=== PATIENT | female | born 1945 | race Caucasian/White ===

== ENCOUNTER 2018-08-17 14:28 | Emergency (ER) | payer MEDICARE ==
[~2018-08-17] VITALS: Ht 170.2 cm; Wt 124.7 kg
[2018-08-17 15:28] LABS: BASOPHILS ABSOLUTE AUTO 0.08 K/mm3 (0.00-0.23); BASOPHILS PERCENT AUTO 1 % (0-2); EOSINOPHILS PERCENT AUTO 1 % (0-6); Hematocrit 43.9 % (33.0-51.0); Hemoglobin 13.7 g/dL (11.5-16.0); IMMATURE GRAN ABSOLUTE AUTO 0.04 K/mm3 (0.00-0.10); IMMATURE GRAN PERCENT AUTO 0 % (0-1); LYMPHOCYTES ABSOLUTE AUTO 1.24 K/mm3 (0.84-5.20); LYMPHOCYTES PERCENT AUTO 12 % (21-46); MONOCYTES ABSOLUTE AUTO 0.58 K/mm3 (0.16-1.47); MONOCYTES PERCENT AUTO 6 % (4-13); Mean Corpuscular HGB Conc 31.2 g/dL (31.5-36.5); Mean Corpuscular Volume 90 fL (80-100); Mean Platelet Volume 10.4 fL (9.1-12.4); NEUTROPHILS ABSOLUTE AUTO 8.38 K/mm3 (1.96-9.15); NEUTROPHILS PERCENT AUTO 80 % (41-73); Platelet Count 252 K/mm3 (150-400); RDW Standard Deviation 49.5 fL (35.1-46.3); Red Blood Cell Count 4.89 M/mm3 (3.80-5.20); White Blood Cell Count 10.42 K/mm3 (4.00-11.30)
[2018-08-17 15:49] LABS: Albumin, Blood 3.8 g/dL (3.4-5.0); Bilirubin, Total 0.6 mg/dL (0.1-1.0); Bun/Creatinine Ratio 24.1 (12.0-20.0); Calcium, Blood 9.5 mg/dL (8.5-10.1); Creatinine, Blood 1.37 mg/dL (0.40-1.00); Potassium, Blood 4.6 mmol/L (3.5-5.5); Total Protein, Blood 7.8 g/dL (6.4-8.2)
[2018-08-17 15:55] LABS: Source, Urine Clean Catch
[2018-08-17] MEDS ORDERED: AMLO10 PO (15:58)
[2018-08-17] MEDS ORDERED: HYDCHL25 PO (15:58)
[2018-08-17] MEDS ORDERED: BENA20 PO (15:58)
[2018-08-17] MEDS ORDERED: CAL MAG ZINC +1 EACH PO (15:59)
[2018-08-17] MEDS ORDERED: ATEN100 (15:59)
[2018-08-17] MEDS ORDERED: OMEGA-3 FLAXS1000 MG PO (16:00)
[2018-08-17] MEDS ORDERED: ASCO500 PO (16:00)
[2018-08-17] MEDS ORDERED: CHOL10002 (16:00)
[2018-08-17] MEDS ORDERED: ACET325 PO (16:01)
[2018-08-17] MEDS ORDERED: ASPI81CH PO (16:01)
[2018-08-17 16:05] LABS: Appearance, Urine Clear (Clear); Bilirubin, Urine Neg (Neg); Blood, Urine 5+ (Neg); Color, Urine Yellow (P-Yellow); Glucose Qualitative, Urine Neg (Neg); Ketones, Urine Neg (Neg); Leukocyte Esterase, Urine Neg (Neg); Nitrite, Urine Neg (Neg); Protein, Urine 1+ (Neg); Specific Gravity, Urine 1.015 (1.003-1.022); Urobilinogen, Urine NORM (Normal)
[2018-08-17 16:19] LABS: Bacteria Few /hpf; Squamous Epithelial Cells Few /hpf (Few); White Blood Cells, Urine Not Seen /hpf (0-5)
[2018-08-17] MEDS ORDERED: ONDA4ODT MM (18:24)
[2018-08-17] MEDS ORDERED: Flomax0.4 MG PO (18:24)
[2018-08-17 18:53] LABS: Carcinoembryonic Antigen 357.6 ng/mL (0.0-3.0)
[2018-08-17 19:06] LABS: Cancer Antigen 125 68.5 U/mL (1.5-35.0)
[2018-08-17 19:09] LABS: Cancer Antigen 19-9 2576.5 U/mL (2.0-37.0)
== END 2018-08-17 18:47 | disposition home or self-care (01) ==
LOC: ER 14:28
PROVIDERS: Emergency Medicine; Physician Assistant
DX: N13.2 Hydronephrosis with renal and ureteral calculous obstruction (principal); C34.90 Malignant neoplasm of unspecified part of unspecified bronchus or lung; I10 Essential (primary) hypertension; Z88.5 Allergy status to narcotic agent; Z88.6 Allergy status to analgesic agent; Z79.899 Other long term (current) drug therapy; Z79.82 Long term (current) use of aspirin; Z87.891 Personal history of nicotine dependence
CPT/HCPCS: 36415; 51701; 74176; 80053; 81001; 82378; 83690; 85025; 86301; 86304; 93005; 93010; 96374; 96375; 99284-25; J2405; J3010